=== PATIENT | female | born 1960 | race Caucasian/White ===

== ENCOUNTER 2021-02-22 09:50 | Inpatient (IN) ==
[2021-02-22] MEDS ORDERED: SODIUM CHLORIDE 0.9% 1000ML 1,000 ML IV SCH (10:30)
[2021-02-22 10:45] LABS: Basophils # (auto) 0.04 K/uL (0-0.2); Basophils % (auto) 0.3 %; Eosinophils % (auto) 0.6 %; Hematocrit (blood only) 40.3 % (37-47); Hemoglobin 13.9 g/dL (12.0-16.0); Immature Granulocytes # (auto) 0.09 K/uL (0.00-0.02); Immature Granulocytes % (auto) 0.6 %; Lymphocytes # (auto) 1.42 K/uL (1.2-3.4); Mean Corpuscular Hemoglobin 30.2 pg (25-34); Mean Corpuscular Hgb Conc 34.5 g/dL (32-36); Mean Corpuscular Volume 87.6 fL (80-100); Mean Platelet Volume 11.5 fL (7.4-10.4); Monocytes # (auto) 1.96 K/uL (0.11-0.59); Monocytes % (auto) 12.4 %; Neutrophils # (auto) 12.18 K/uL (1.4-6.5); Neutrophils % (auto) 77.1 %; Platelet Count 411 K/uL (130-400); RDW Coefficient of Variation 13.9 % (11.5-14.5); RDW Standard Deviation 44.8 fL (36.4-46.3); White Blood Count 15.79 K/uL (4.8-10.8)
[2021-02-22] MEDS ORDERED: ONDANSETRON INJ 2 MG/ML 2 ML VIAL IV STA (10:57)
[2021-02-22] MEDS ORDERED: FAMOTIDINE 20MG IV PUSH 20 MG/5 ML SYR IV STA (10:57)
[2021-02-22] MEDS ORDERED: fentaNYL citrate 100 MCG/2 ML VIAL IV STA (10:57)
[2021-02-22 11:02] LABS: Albumin Globulin Ratio 0.6 (0.9-2); Albumin Level 3.2 gm/dl (3.4-5.0); BUN Creatinine Ratio 22.2 (10-20); Bilirubin,Total 0.3 mg/dl (0.2-1); Calcium 10.8 mg/dl (8.5-10.1); Creatinine Clr Calc Pharmacy 62.5 ml/min; Est GFR (African American) 103.5; Est GFR (Non-African American) 89.3; Globulin 5.1 gm/dl (2.5-4.0); Potassium 3.7 mmol/L (3.5-5.1); Total Protein 8.4 gm/dl (6.4-8.2)
--- NOTE | 2021-02-22 11:06 | Emergency Department Note ---
History of Present Illness General Chief complaint: Vomiting Stated complaint: STOMACH ISSUE,DEHYDRATION,VOMITING,FEVER,HEADACHE Time Seen by Provider: 02/22/21 10:32 History of Present Illness Maximum Pain Intensity: 7 Patient is a 60-year-old female with past medical history significant for migraines, hypothyroidism, generalized osteoarthritis and seasonal allergies who presents the emergency department for evaluation of upper abdominal pain x5 days. She states that she developed epigastric abdominal pain on Thursday evening 5 days ago. She describes it as a constant, throbbing pressure. It mainly sits in the epigastric region, but on occasion can radiate to the right upper and the left upper quadrants. She went to her primary care provider on Thursday after the pain started, was seen by the DELIO, who recommended supportive care. At that time, the patient was noted to have a fever in the office greater than 101 F. Patient herself did take it upon herself to get a Covid test on Thursday which was negative. That day she had an episode of shaking chills, and started vomit ing. She is continued to run fevers between 99-102 degrees Fahrenheit. Pain has persisted. She was given Zofran yesterday, which did help with the vomiting. She has tried water, arpan danielle and oyster crackers. The pain is keeping her from sleeping, she currently rates her discomfort a 7/10. She has been taking combination Tylenol/ibuprofen for her pain, but this has been upsetting her stomach. She denies any hematemesis. Bowel movements prior to the onset of her pain have been normal, she reports no bowel movement due to the decreased oral intake. Certainly no melena or hematochezia. She has never had a colonoscopy or an EGD. Denies tobacco or nicotine use, drinks wine rarely, consumes 1/2 cups of coffee per day, but does note taking roughly 1600 mg of ibuprofen daily due to musculoskeletal pain. She is also using Claritin-D for her seasonal allergies. She was seen at the primary care provider's office again today, and referred to the emergency department for evaluation. Home Medications Medication Instructions Recorded Confirmed Type ibuprofen-acetaminophen [Advil 1 tab PO Q8H PRN 02/22/21 02/22/21 History Dual Action] levothyroxine 88 mcg PO QAM 02/22/21 02/22/21 History ondansetron HCl 4 mg PO TID PRN 02/22/21 02/22/21 History sumatriptan succinate 100 mg PO UD 02/22/21 02/22/21 History Allergies Allergy/AdvReac Type Severity Reaction Status Date / Time aspirin AdvReac Intermediate Severe GI Unverified 02/22/21 13:18 upset Past Med/Surg History Medical History Environmental and seasonal allergies Hx of migraines Hypothyroidism Surgical History No history of previous surgery Social History Smoking Status: Never smoker Preferred Language: Mauritian marital status: Single Current Living Situation: Significant Other current occupational status: employed Feels Safe at Home: Yes Review of Systems A total of 10 systems reviewed and were otherwise negative Physical Exam Vital Signs Vital Signs - 24 hr 02/22/21 09:55 02/22/21 11:50 02/22/21 14:00 Temperature 37.1 C Temperature Source Oral Pulse Rate 89 Pulse Rate [Left Finger] 67 75 Pulse Rhythm [Left Finger] Regular Regular Pulse Strength [Left Finger] Normal Normal Respiratory Rate 16 20 20 Respiratory Effort / Characteristics Non-Labored Spontaneous Non-Labored Spontaneous Respiratory Depth Normal Normal Respiratory Pattern Regular Regular Blood Pressure 125/87 Blood Pressure [Right Arm] 131/78 136/86 Blood Pressure Mean 99 Blood Pressure Mean [Right Arm] 95 102 Blood Pressure Position [Right Arm] Lying Sitting Pulse Oximetry 97 98 98 Oxygen Delivery Method Room Air Room Air Sepsis Recent Fever Within 48 Hours No Sepsis New/Unexplained Change in Mental Status N/A Sepsis Action Taken by Nursing No Action Required 02/22/21 16:18 Temperature Temperature Source Pulse Rate Pulse Rate [Left Finger] 97 H Pulse Rhythm [Left Finger] Regular Pulse Strength [Left Finger] Normal Respiratory Rate 20 Respiratory Effort / Characteristics Non-Labored Spontaneous Respiratory Depth Normal Respiratory Pattern Regular Blood Pressure Blood Pressure [Right Arm] 123/86 Blood Pressure Mean Blood Pressure Mean [Right Arm] 98 Blood Pressure Position [Right Arm] Sitting Pulse Oximetry 95 Oxygen Delivery Method Room Air Sepsis Recent Fever Within 48 Hours Sepsis New/Unexplained Change in Mental Status Sepsis Action Taken by Nursing CONSTITUTIONAL: Patient is an uncomfortable although nontoxic appearing 60-year-old female who is awake and alert and in no acute distress. Vital signs are stable. She is afebrile. EYES: Pupils equal, round, reactive to light and accommodation. EOMs intact without nystagmus. Sclera are anicteric. ENT: Tympanic membranes intact, with normal landmarks. External canals are clear. Oral and nasopharynx are clear. Mucous membranes are moist, no lesions, tongue and gums appear normal. CARDIOVASCULAR: Regular rate and rhythm, with normal S1 and S2, no murmur or gallop or rub is heard. Peripheral pulses easy to palpable. RESPIRATORY: Breath sounds equal and clear to auscultation without wheezes, rales, or rhonchi heard. Full and equal chest expansion without accessory muscle use or retractions. GI: Bowel sounds are present. Abdomen is soft, nondistended, nontender to percussion throughout. She is tender to palpation in the epigastric region on the right upper quadrant with voluntary guarding. No pain in the left or the right lower quadrants. No pain over McBurney's point. No organomegaly. No pulsatile masses. MUSCULOSKELETAL: Full range of motion of extremities x 4 with good strength. No cyanosis, edema, joint tenderness or swelling. No deformity. INTEGUMENTARY: No lesions or rash, normal skin turgor. NEUROLOGICAL: Alert, oriented, and cooperative. Cranial nerves, sensation and strength grossly intact. Pupils round, equal, and react to light, EOMs are full. LYMPH: No lymphadenopathy. Course Course The patient was seen and assessed as above. Old records were reviewed. She presents the emergency department from her primary care provider's office for evaluation of epigastric pain with associated nausea and vomiting over the last 5 days. IV lock was initiated and laboratory studies were collected. CBC with differential, CMP and lipase have been ordered per critical pathways. After my assessment of the patient, troponin and urinalysis were ordered. Chest x-ray and gallbladder ultrasound as well as an EKG were also obtained. She was hydrated with normal saline solution and medicated with Pepcid 20 mg IV, Zofran 4 mg IV and fentanyl 50 mcg IV. Laboratory studies noted a white count elevated at 15,800, left shift and bandemia noted. No anemia. Electrolytes sodium 135, potassium 3.7, chloride 100, carbon dioxide 26, BUN 16 and creatinine 0.74. AL T and a STIR normal, alk phos slightly elevated at 130. Troponin is negative x1 with symptoms greater than 24 hours. Lipase is not indicative of acute pancreatitis. EKG was as noted below with a no acute ischemic changes. Chest x-ray was clear. Gallbladder ultrasound was normal, without ductal dilatation. The patient was reassessed. Laboratory studies, EKG, chest x-ray and gallbladder ultrasound were reviewed with her. Discussed with her that CT scan of the abdomen pelvis with IV contrast was advised to further evaluate for the source of her abdominal pain. The patient's pain had improved from a 7/10 to a 2/10 with the IV medications. CT scan findings were consistent with gastric antral and duodenal wall thickening suspicious for gastritis/duodenitis, consistent with her symptoms, however additional findings noted a complex cystic 25 mm left renal lesion with surrounding hyperechoic parenchyma. There is mild enhancement of the renal pe lvis and proximal ureter. Findings are suspicious for renal abscess with pyelitis. Urologic consultation was recommended. There was no evidence for bowel obstruction, free air, acute diverticulitis or appendicitis. 2 mm nonobstructing left renal calculus noted. No ureteral calculi. 44 mm cystic right adnexal lesion statistically ovarian. All laboratory and diagnostic imaging studies were reviewed with attending physician. At this point the the patient's urinalysis was back, noting nitrat es, 10-30 WBCs and 2+ bacteria, greater than 30 epithelial cells are noted. Urine culture is pending. Given the findings on CT scan, I did order blood cultures x2 and a lactic acid. She was given ceftriaxone 2 g IV. Maintenance fluids at 250 cc an hour were initiated. She was given pantoprazole 40 mg orally. COVID-19 swab was obtained suspecting admission. Consultation was placed with urology, I spoke with ABAD Brady, who was in discussion with Dr. Olmstead. Ultimately, given the size of the suspected abscess on CT, it was felt that she would be better served at a tertiary care facility where interventional radiology services were available. Covid swab is negative. Lactate was normal at 0.7. Transfer was discussed with the patient and her significant other. She has elected [facility] in [place]. Transfer was initiated. I was able to speak with Dr. Lord, hospitalist service, discussed the case with him, and they have accepted the patient in transfer. Consent to transfer was obtained from the patient, transfer orders were complete, and transfer is pending, awaiting bed assignment from [facility]. Patient remained stable in the ED, pending transfer arrangements. At 1727, patient's primary nurse contacted me that patient had developed red, r aised patches on her face. She was reassessed by myself. She did appear to have hives on her cheeks, chin, neck and left clavicle region. No involvement of the lips, tongue or throat. No difficulty breathing or swallowing. She was given Benadryl 25 mg IV. I suspect the ceftriaxone as the likely cause. She has been loaded with 2g, and will not need any additional antibiotics for 24 hours. Further antibiotics will be determined by the admitting service at [place]. Administered Medications Sodium Chloride (Nss 1000ml) 1,000 mls @ 250 mls/hr IV .Q4H NORBERT Stop: 03/24/21 13:29 Last Admin: 02/22/21 14:09 Dose: 250 mls/hr Documented by: [id number] Discontinued Medications Fentanyl Citrate (Fentanyl Citrate 100 Mcg/2 Ml Vial) 50 mcg IV NOW STA Stop: 02/22/21 10:58 Last Admin: 02/22/21 12:53 Dose: 50 mcg Documented by: [id number] Sodium Chloride (Nss 1000ml) 1,000 mls @ 999 mls/hr IV .Q1H1M NORBERT Stop: 02/22/21 11:30 Last Infusion: 02/22/21 11:34 Dose: 0 mls/hr Documented by: [id number] Admin: 02/22/21 10:28 Dose: 999 mls/hr Documented by: [id number] Famotidine (Pepcid 20mg Iv Push) 20 mg in 5 mls @ 2.5 mls/min IV NOW STA Stop: 02/22/21 10:58 Last Admin: 02/22/21 12:01 Dose: 2.5 mls/min Documented by: [id number] Ceftriaxone Sodium (Rocephin) 2,000 mg in 70 mls @ 140 mls/hr IV NOW STA Stop: 02/22/21 13:58 Last Admin: 02/22/21 14:51 Dose: 140 mls/hr Documented by: [id number] Ioversol (Optiray 300 100ml) 88 ml IV ONCE ONE Stop: 02/22/21 12:25 Last Admin: 02/22/21 12:24 Dose: 88 ml Documented by: [id number] Ondansetron HCl (Ondansetron Inj 2 Mg/Ml 2 Ml Vial) 4 mg IV NOW STA Stop: 02/22/21 10:58 Last Admin: 02/22/21 12:01 Dose: 4 mg Documented by: [id number] Pantoprazole Sodium (Pantoprazole 40 Mg Tab) 40 mg PO NOW STA Stop: 02/22/21 13:32 Last Admin: 02/22/21 14:09 Dose: 40 mg Documented by: [id number] Medical Decision Making Differential Diagnosis Differential diagnoses entertained included GERD, gastritis, esophagitis, peptic ulcer disease, acute pancreatitis, biliary colic, acute cholecystitis, symptomatic cholelithiasis, ascending cholangitis, bowel obstruction, perforation, mass or malignancy, UTI, pyelonephritis, kidney stone, among others. Medical Records Attestation: I reviewed the patient's medical records. Home Medications Current Medication List: was personally reviewed by me Laboratory Data Attestation: I reviewed the patient's lab results. Result diagrams: 02/22/21 10:15 02/22/21 10:12 Lab Results 02/22/21 02/22/21 02/22/21 Range/Units 10:12 10:15 10:59 WBC 15.79 H (4.8-10.8) K/uL RBC 4.60 (4.2-5.4) M/uL Hgb 13.9 (12.0-16.0) g/dL Hct 40.3 (37-47) % MCV 87.6 (80-100) fL MCH 30.2 (25-34) pg MCHC 34.5 (32-36) g/dL RDW Std Deviation 44.8 (36.4-46.3) fL RDW Coeff of Lilliam 13.9 (11.5-14.5) % Plt Count 411 H (130-400) K/uL MPV 11.5 H (7.4-10.4) fL Immature Gran % (Auto) 0.6 % Neut % (Auto) 77.1 % Lymph % (Auto) 9.0 % [place] % (Auto) 12.4 % Eos % (Auto) 0.6 % Baso % (Auto) 0.3 % Neut # (Auto) 12.18 H (1.4-6.5) K/uL Lymph # (Auto) 1.42 (1.2-3.4) K/uL [place] # (Auto) 1.96 H (0.11-0.59) K/uL Eos # (Auto) 0.10 (0-0.5) K/uL Baso # (Auto) 0.04 (0-0.2) K/uL Immature Gran # (Auto) 0.09 H (0.00-0.02) K/uL Sodium 135 L (136-145) mmol/L Potassium 3.7 (3.5-5.1) mmol/L Chloride 100 (98-107) mmol/L Carbon Dioxide 26 (21-32) mmol/L Anion Gap 9.0 (3-11) BUN 16 (7-18) mg/dl Creatinine 0.74 (0.6-1.2) mg/dl Est Cr Clr Drug Dosing 62.5 ml/min Est GFR ( Amer) 103.5 Est GFR (Non-Af Amer) 89.3 BUN/Creatinine Ratio 22.2 H (10-20) Glucose 110 H (70-99) mg/dl Lactate (0.4-2.0) mmol/L Calcium 10.8 H (8.5-10.1) mg/dl Total Bilirubin 0.3 (0.2-1) mg/dl AST 18 (15-37) U/L ALT 47 (12-78) U/L Alkaline Phosphatase 130 H (45-117) U/L Troponin I < 0.015 (0-0.045) ng/ml Total Protein 8.4 H (6.4-8.2) gm/dl Albumin 3.2 L (3.4-5.0) gm/dl Globulin 5.1 H (2.5-4.0) gm/dl Albumin/Globulin Ratio 0.6 L (0.9-2) Lipase 62 L (73-393) U/L Specimen Hemolysis Urine Color Urine Appearance (Clear) Urine pH (4.5-7.5) Ur Specific [place] (1.000-1.030) Urine Protein (Negative) Urine Glucose (UA) (Negative) Urine Ketones (Negative) Urine Blood (Negative) Urine Nitrite (Negative) Urine Bilirubin (Negative) Urine Urobilinogen (Negative) Ur Leukocyte Esterase (Negative) Urine WBC (Auto) (0-5) /hpf Urine RBC (Auto) (0-4) /hpf U Hyaline Cast (Auto) (0-5) /lpf U Epithel Cells (Auto) (0-5) /lpf Urine Bacteria (Auto) (Negative) COVID-19 Eval Order SARS-CoV-2 (PCR) (Negative) Influenza Type A (PCR) (Neg) Influenza Type B (PCR) (Neg) RSV (RT-PCR) (Neg) 02/22/21 02/22/21 02/22/21 Range/Units 12:58 14:13 14:13 WBC (4.8-10.8) K/uL RBC (4.2-5.4) M/uL Hgb (12.0-16.0) g/dL Hct (37-47) % MCV (80-100) fL MCH (25-34) pg MCHC (32-36) g/dL RDW Std Deviation (36.4-46.3) fL RDW Coeff of Lilliam (11.5-14.5) % Plt Count (130-400) K/uL MPV (7.4-10.4) fL Immature Gran % (Auto) % Neut % (Auto) % Lymph % (Auto) % [place] % (Auto) % Eos % (Auto) % Baso % (Auto) % Neut # (Auto) (1.4-6.5) K/uL Lymph # (Auto) (1.2-3.4) K/uL [place] # (Auto) (0.11-0.59) K/uL Eos # (Auto) (0-0.5) K/uL Baso # (Auto) (0-0.2) K/uL Immature Gran # (Auto) (0.00-0.02) K/uL Sodium (136-145) mmol/L Potassium (3.5-5.1) mmol/L Chloride (98-107) mmol/L Carbon Dioxide (21-32) mmol/L Anion Gap (3-11) BUN (7-18) mg/dl Creatinine (0.6-1.2) mg/dl Est Cr Clr Drug Dosing ml/min Est GFR ( Amer) Est GFR (Non-Af Amer) BUN/Creatinine Ratio (10-20) Glucose (70-99) mg/dl Lactate (0.4-2.0) mmol/L Calcium (8.5-10.1) mg/dl Total Bilirubin (0.2-1) mg/dl AST (15-37) U/L ALT (12-78) U/L Alkaline Phosphatase (45-117) U/L Troponin I (0-0.045) ng/ml Total Protein (6.4-8.2) gm/dl Albumin (3.4-5.0) gm/dl Globulin (2.5-4.0) gm/dl Albumin/Globulin Ratio (0.9-2) Lipase (73-393) U/L Specimen Hemolysis Urine Color Yellow Urine Appearance Clear (Clear) Urine pH 7.5 (4.5-7.5) Ur Specific [place] > 1.045 H (1.000-1.030) Urine Protein Trace H (Negative) Urine Glucose (UA) Negative (Negative) Urine Ketones Trace H (Negative) Urine Blood Trace H (Negative) Urine Nitrite Positive A (Negative) Urine Bilirubin Negative (Negative) Urine Urobilinogen Negative (Negative) Ur Leukocyte Esterase Negative (Negative) Urine WBC (Auto) 10-30 H (0-5) /hpf Urine RBC (Auto) 0-4 (0-4) /hpf U Hyaline Cast (Auto) 1-5 (0-5) /lpf U Epithel Cells (Auto) >30 H (0-5) /lpf Urine Bacteria (Auto) 2+ H (Negative) COVID-19 Eval Order CovFluRsv at [facility] SARS-CoV-2 (PCR) NEGATIVE (Negative) Influenza Type A (PCR) Negative (Neg) Influenza Type B (PCR) Negative (Neg) RSV (RT-PCR) Negative (Neg) 02/22/21 Range/Units 14:40 WBC (4.8-10.8) K/uL RBC (4.2-5.4) M/uL Hgb (12.0-16.0) g/dL Hct (37-47) % MCV (80-100) fL MCH (25-34) pg MCHC (32-36) g/dL RDW Std Deviation (36.4-46.3) fL RDW Coeff of Lilliam (11.5-14.5) % Plt Count (130-400) K/uL MPV (7.4-10.4) fL Immature Gran % (Auto) % Neut % (Auto) % Lymph % (Auto) % [place] % (Auto) % Eos % (Auto) % Baso % (Auto) % Neut # (Auto) (1.4-6.5) K/uL Lymph # (Auto) (1.2-3.4) K/uL [place] # (Auto) (0.11-0.59) K/uL Eos # (Auto) (0-0.5) K/uL Baso # (Auto) (0-0.2) K/uL Immature Gran # (Auto) (0.00-0.02) K/uL Sodium (136-145) mmol/L Potassium (3.5-5.1) mmol/L Chloride (98-107) mmol/L Carbon Dioxide (21-32) mmol/L Anion Gap (3-11) BUN (7-18) mg/dl Creatinine (0.6-1.2) mg/dl Est Cr Clr Drug Dosing ml/min Est GFR ( Amer) Est GFR (Non-Af Amer) BUN/Creatinine Ratio (10-20) Glucose (70-99) mg/dl Lactate 0.7 (0.4-2.0) mmol/L Calcium (8.5-10.1) mg/dl Total Bilirubin (0.2-1) mg/dl AST (15-37) U/L ALT (12-78) U/L Alkaline Phosphatase (45-117) U/L Troponin I (0-0.045) ng/ml Total Protein (6.4-8.2) gm/dl Albumin (3.4-5.0) gm/dl Globulin (2.5-4.0) gm/dl Albumin/Globulin Ratio (0.9-2) Lipase (73-393) U/L Specimen Hemolysis Urine Color Urine Appearance (Clear) Urine pH (4.5-7.5) Ur Specific [place] (1.000-1.030) Urine Protein (Negative) Urine Glucose (UA) (Negative) Urine Ketones (Negative) Urine Blood (Negative) Urine Nitrite (Negative) Urine Bilirubin (Negative) Urine Urobilinogen (Negative) Ur Leukocyte Esterase (Negative) Urine WBC (Auto) (0-5) /hpf Urine RBC (Auto) (0-4) /hpf U Hyaline Cast (Auto) (0-5) /lpf U Epithel Cells (Auto) (0-5) /lpf Urine Bacteria (Auto) (Negative) COVID-19 Eval Order SARS-CoV-2 (PCR) (Negative) Influenza Type A (PCR) (Neg) Influenza Type B (PCR) (Neg) RSV (RT-PCR) (Neg) Imaging Data Attestation: I personally reviewed and interpreted this imaging study as follows: Radiologist's Impression: Chest X-Ray 02/22/21 10:57 XR chest 1V portable CLINICAL HISTORY: EPIGASTRIC PAIN X 5 DAYS COMPARISON STUDY: No previous studies for comparison. FINDINGS: Lung volumes are normal. Lungs are clear. There is no pneumothorax or pleural effusion. Cardiac size is normal. Mediastinal contours are normal. There is no evidence for pulmonary edema. IMPRESSION: No acute cardiopulmonary findings. ACT 112: Negative or not required by law. Electronically signed by: Amadou Souza M.D. 02/22/2021 11:23 AM Gallbladder Ultrasound 02/22/21 10:58 BILIARY ULTRASOUND CLINICAL HISTORY: EPIGASTRIC PAIN X 5 DAYS COMPARISON STUDY: No previous studies for comparison. FINDINGS: The gallbladder appears sonographically normal. The liver appears sonographically normal. Pancreas appears sonographically normal. There is no ductal dilatation. The common bile duct measures 4 mm. There is no right-sided hydronephrosis. IMPRESSION: Normal biliary ultrasound. ACT 112: Negative or not required by law. Electronically signed by: Reza Knox M.D. 02/22/2021 11:56 AM Abdomen/Pelvis CT 02/22/21 12:05 CT abd pelvis IV con only CLINICAL HISTORY: EPIGASTRIC PAIN, N/V, FEVER COMPARISON STUDY: Gallbladder ultrasound performed the same day. TECHNIQUE: Patient was scanned in a dynamic helical fashion during intravenous administration of 88 cc of Optiray 320 A dose lowering technique was utilized adhering to the principles of ALARA. CT DOSE: 246.87 mGy.cm FINDINGS: Lower chest: There are mild basilar atelectatic changes. Liver: There are subcentimeter hepatic hypodensities, likely representing cysts. Gallbladder: No calculi identified. Spleen: Normal in size and attenuation. Pancreas: Unremarkable. Adrenal glands: Unremarkable. Kidneys: There is a 25 mm left renal hypodense lesion which exceeds water attenuation. There is subtle low density within the surrounding renal parenchyma. There is mild enhancement of the left renal pelvis and proximal ureter. Clinical correlation and follow-up is recommended.. The findings favor a renal abscess and pyelitis. A cystic renal lesion of some other etiology can of course not be excluded. There is a second 11 mm left renal hypodense lesion which also exceeds water attenuation and is therefore indeterminate. This lesion should be reevaluated on subsequent renal imaging. There is a 2 mm nonobstructing lower pole left renal calculus. Bowel: There are no transition zones to indicate bowel obstruction. There is no evidence of acute diverticulitis. There is no evidence of acute appendicitis. There is bowel wall thickening involving the gastric antrum and duodenum suspicious for a gastritis/duodenitis. Clinical correlation advocated Peritoneum: There is no intraperitoneal free air or abdominal ascites. Vasculature: The abdominal aorta is normal in course and caliber. Adenopathy: None. Pelvic viscera: There is a 44 mm cystic right adnexal lesion, statistically ovarian. There are calcifications within the uterus likely secondary to calcified fibroids Skeletal structures: No destructive osseous lesions are seen. IMPRESSION: 1. No evidence of bowel obstruction. No evidence of free air 2. No evidence of acute diverticulitis. No evidence of acute appendicitis. 3. Gastric antral and duodenal wall thickening, suspicious for a gastritis/duodenitis. 4. Complex cystic 25 mm left renal lesion with surrounding hypoechoic parenchyma. There is mild enhancement of the renal pelvis and proximal ureter. T he findings are suspicious for a renal abscess with a pyelitis. Urological consultation recommended in follow-up.. 5. Additional indeterminate 11 mm left renal lesion. 6. 2 mm nonobstructing left renal calculus. No ureteral calculi identified. 6. 44 mm cystic right adnexal lesion statistically ovarian ACT 112: Positive. There are findings on this exam that require communication between the performing entity and the patient following Patient Test Result Information Act ([place] Act 112) guidelines. Electronically signed by: Reza Knox M.D. 02/22/2021 12:54 PM ECG Data Attestation: I personally reviewed and interpreted this ECG as follows: Indication: + abdominal pain Rate (beats per minute): 79 Rhythm: + normal sinus ECG [place]: + Normal ECG ST segments: no ST elevation Comparison ECG Date: no prior available MDM Narrative See ED Course. Impression & Plan Abscess of left kidney, Acute pyelitis, Gastritis and duodenitis Discharge Plan Visit Data Chief Complaint: Vomiting Stated Complaint: STOMACH ISSUE,DEHYDRATION,VOMITING,FEVER,HEADACHE ED Provider: Gabriel Almanza ED Midlevel Provider: Sue Bach Discharge Problem: Abscess of left kidney, Acute pyelitis, Gastritis and duodenitis Patient Disposition: Transfer Acute Care Hospital Forms Stand Alone Forms: [facility] Prescriptions Prescriptions: No Action sumatriptan succinate 100 mg tablet 100 mg PO UD RF: 0 ondansetron HCl 4 mg tablet 4 mg PO TID PRN (Reason: Nausea) RF: 0 levothyroxine 88 mcg tablet 88 mcg PO QAM RF: 0 Advil Dual Action 125-250 mg Tablet 1 tab PO Q8H PRN (Reason: Pain) RF: 0 Referrals Referrals: Sarita Jordan DO [Primary Care Provider] -
--- NOTE | 2021-02-22 11:24 | XRay Report ---
XR chest 1V portable CLINICAL HISTORY: EPIGASTRIC PAIN X 5 DAYS COMPARISON STUDY: No previous studies for comparison. FINDINGS: Lung volumes are normal. Lungs are clear. There is no pneumothorax or pleural effusion. Car diac size is normal. Mediastinal contours are normal. There is no evidence for pulmonary edema. IMPRESSION: No acute cardiopulmonary findings. ACT 112: Negative or not required by law. Electronically signed by: Amadou Souza M.D. 02/22/2021 11:23 AM
[2021-02-22 11:42] LABS: Troponin I < 0.015 ng/ml (0-0.045)
--- NOTE | 2021-02-22 11:58 | Ultrasound Report ---
BILIARY ULTRASOUND CLINICAL HISTORY: EPIGASTRIC PAIN X 5 DAYS COMPARISON STUDY: No previous studies for comparison. FINDINGS: The gallbladder appears sonographically normal. The liver appears sonographically normal. P ancreas appears sonographically normal. There is no ductal dilatation. The common bile duct measures 4 mm. There is no right-sided hydronephrosis. IMPRESSION: Normal biliary ultrasound. ACT 112: Negative or not required by law. Electronically signed by: Reza Knox M.D. 02/22/2021 11:56 AM
[2021-02-22] MEDS ORDERED: OPTIRAY 300 100mL IV ONE (12:24)
--- NOTE | 2021-02-22 12:55 | CT Scan Report ---
CT abd pelvis IV con only CLINICAL HISTORY: EPIGASTRIC PAIN, N/V, FEVER COMPARISON STUDY: Gallbladder ultrasound performed the same day. TECHNIQUE: Patient was scanned in a dynamic helical fashion during intravenous administration of 88 c c of Optiray 320 A dose lowering technique was utilized adhering to the principles of ALARA. CT DOSE: 246.87 mGy.cm FINDINGS: Lower chest: There are mild basilar atelectatic changes. Liver: There are subcentimeter hepatic hypodensities, likely representing cysts. Gallbladder: No calculi identified. Spleen: Normal in size and attenuation. Pancreas: Unremarkable. Adrenal glands: Unremarkable. Kidneys: There is a 25 mm left renal hypodense lesion which exceeds water attenuation. There is subtl e low density within the surrounding renal parenchyma. There is mild enhancement of the left renal pe lvis and proximal ureter. Clinical correlation and follow-up is recommended.. The findings favor a re nal abscess and pyelitis. A cystic renal lesion of some other etiology can of course not be excluded. There is a second 11 mm left renal hypodense lesion which also exceeds water attenuation and is ther efore indeterminate. This lesion should be reevaluated on subsequent renal imaging. There is a 2 mm n onobstructing lower pole left renal calculus. Bowel: There are no transition zones to indicate bowel obstruction. There is no evidence of acute div erticulitis. There is no evidence of acute appendicitis. There is bowel wall thickening involving the gastric antrum and duodenum suspicious for a gastritis/duodenitis. Clinical correlation advocated Peritoneum: There is no intraperitoneal free air or abdominal ascites. Vasculature: The abdominal aorta is normal in course and caliber. Adenopathy: None. Pelvic viscera: There is a 44 mm cystic right adnexal lesion, statistically ovarian. There are calcif ications within the uterus likely secondary to calcified fibroids Skeletal structures: No destructive osseous lesions are seen. IMPRESSION: 1. No evidence of bowel obstruction. No evidence of free air 2. No evidence of acute diverticulitis. No evidence of acute appendicitis. 3. Gastric antral and duodenal wall thickening, suspicious for a gastritis/duodenitis. 4. Complex cystic 25 mm left renal lesion with surrounding hypoechoic parenchyma. There is mild enhan cement of the renal pelvis and proximal ureter. The findings are suspicious for a renal abscess with a pyelitis. Urological consultation recommended in follow-up.. 5. Additional indeterminate 11 mm left renal lesion. 6. 2 mm nonobstructing left renal calculus. No ureteral calculi identified. 6. 44 mm cystic right adnexal lesion statistically ovarian ACT 112: Positive. There are findings on this exam that require communication between the performing entity and the patient following Patient Test Result Information Act ([place] Act 112) guidelines. Electronically signed by: Reza Knox M.D. 02/22/2021 12:54 PM
[2021-02-22 13:14] LABS: Appearance Urine Clear (Clear); Bilirubin Urine Negative (Negative); Blood Urine Trace (Negative); Color Urine Yellow; Epithelial Cell Urine Auto >30 /lpf (0-5); Glucose Urine UA Negative (Negative); Ketones Urine Trace (Negative); Leukocyte Esterase Urine Negative (Negative); Nitrite Urine Positive (Negative); RBC Urine Automated 0-4 /hpf (0-4); Specific Gravity Urine > 1.045 (1.000-1.030); Urobilinogen Urine Negative (Negative); pH Urine 7.5 (4.5-7.5)
[2021-02-22 13:27] LABS: Protein Urine Trace (Negative)
[2021-02-22] MEDS ORDERED: cefTRIAXone SODIUM 2,000 MG/70 ML BAG IV STA (13:29)
[2021-02-22] MEDS ORDERED: PANTOprazole 40 MG TAB PO STA (13:31)
[2021-02-22 13:41] LABS: Bacteria Urine Automated 2+ (Negative)
[2021-02-22] MEDS: SODIUM CHLORIDE 0.9% 1000ML 1,000 ML IV SCH ×2 (14:09→20:49)
[2021-02-22 15:12] LABS: Influenza A virus by PCR Negative (Neg); Influenza B virus by PCR Negative (Neg); RSV by PCR Negative (Neg); SARS CoV2 RNA(COVID-19) InHosp NEGATIVE (Negative)
--- NOTE | 2021-02-22 15:35 | Electrocardiogram Report ---
Test Reason : Blood Pressure : / mmHG Vent. Rate : 079 BPM Atrial Rate : 079 BPM P-R Int : 144 ms QRS Dur : 086 ms QT Int : 368 ms P-R-T Axes : 072 061 066 degrees QTc Int : 421 ms Normal sinus rhythm Normal ECG No previous ECGs available Confirmed by John Baca ([id number]) on 02/22/2021 3:35:08 PM Referred By: REFERRED SELF Confirmed By:John Baca
[2021-02-22] MEDS ORDERED: ONDANSETRON INJ 2 MG/ML 2 ML VIAL IV PRN (17:22)
[2021-02-22] MEDS ORDERED: fentaNYL citrate 100 MCG/2 ML VIAL IV PRN (17:22)
[2021-02-22] MEDS ORDERED: diphenhydrAMINE 50 MG/ML VIAL IV STA (17:39)
[2021-02-22] MEDS ORDERED: PIPERACILL/TAZOBAC CONSULT ACTIVE PRN (21:22)
[2021-02-22] MEDS ORDERED: PIPERACILLIN/TAZOBACTAM 4.5 GM/120 ML BAG IV STA (21:32)
--- NOTE | 2021-02-22 22:23 | Emergency Department Note ---
ED Visit Note Care of this patient was signed out to me by Alee Bach PA-C at change of shift. At that time, patient was awaiting transfer to [facility]. Unfortunately, there was no bed available at [facility] and they were not sure when the next bed would be available, but did not think it would be until tomorrow. Given this, I think it would benefit the patient to admit her here for IV antibiotics until she is able to be transferred. I discussed this with the patient and her , who were in agreement. The case was discussed with the [facility] hospitalist, Dr. Salmon, who agreed to evaluate the patient for admission here.
[2021-02-22 22:48] LABS: Magnesium 2.4 mg/dl (1.8-2.4)
--- NOTE | 2021-02-22 23:51 | History & Physical Report ---
Date of Service February 22, 2021 Assessment & Plan (1) Abscess of left kidney: Complicated UTI Possible sepsis NSAID gastritis/duodenitis Hypothyroidism, TSH elevated Hyperglycemia rule out DM Past tobacco abuse Constipation [facility] Fariha RASMUSSEN Urology consult Re: Left renal abscess (Dr. Olmstead agreeable to patient request to stay at [facility] for antibiotic trial for now.) Daily PPI for gastritis/duodenitis. Patient counseled regarding adverse effects of NSAIDs on GI mucosa. GI consult if with worsening symptoms. Check hemoglobin A1c Bowel regimen DVT prophylaxis. SCDs RE GI bleed propensity from gastritis/duodenitis Full code Text document was generated using [employer] voice recognition software. It may contain grammatical or spelling errors. Kindly contact undersigned for clarification of any documentation item in question. History of Present Illness Chief Complaint: Abdominal pain Primary Care Provider: Sarita Jordan, History obtained from patient and records. Medical history significant for hypothyroidism, past tobacco abuse. 5 days history of achy/burning epigastric pain with nausea, emesis symptoms. Patient constipated. Fever, chills at home. Minimal L flank pain, dysuria symptoms. 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 No unusual weight loss as per patient. Patient seen at PCP's office a day after onset of symptoms. Symptoms attributed to gastroenteritis. Patient consulted ER today because of worsening symptoms. Epigastric discomfort relieved by Famotidine, Protonix, and Fentanyl. Patient given IV ceftriaxone for possible renal abscess on CT. Hives noted after IV Ceftriaxone administration. Resolved after IV Benadryl administration. Urologist cold reduction roller later recommended [facility] transfer for IR services for renal abscess. Patient accepted for transfer by hospitalist service (Dr. Lord) as per documentation. Patient currently refusing [facility] transfer even with bed availability. She requests to stay at [facility] for antibiotic trial for now. 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 [employer] Allergies Allergy/AdvReac Type Severity Reaction Status Date / Time ceftriaxone Allergy Mild Hives Verified 02/22/21 23:56 aspirin AdvReac Intermediate Severe GI Unverified 02/22/21 13:18 upset Home Medications Medication Instructions Recorded Confirmed Type ibuprofen-acetaminophen [Advil 1 tab PO Q8H PRN 02/22/21 02/22/21 History Dual Action] levothyroxine 88 mcg PO QAM 02/22/21 02/22/21 History ondansetron HCl 4 mg PO TID PRN 02/22/21 02/22/21 History sumatriptan succinate 100 mg PO UD 02/22/21 02/22/21 History Past Med/Surg History Medical History Environmental and seasonal allergies Hx of migraines Hypothyroidism Surgical History No history of previous surgery Social History Smoking Status: Former smoker Hx Alcohol Use: Yes Alcohol type: wine Hx Substance Use: No Preferred Language: [place] Medical Specialist Required: No Beliefs That Will Affect Care: None marital status: Single Current Living Situation: Alone current occupational status: employed Other Information That Helps Us Care for You: No Feels Safe at Home: Yes Assistive Devices: Glasses Review of Systems Review of Systems: As per HPI, all 10 systems reviewed, all other ROS negative Physical Exam Physical Exam: GENERAL: Slightly uncomfortable, pleasant, no respiratory distress SKIN: Normal color, warm HEENT: [place] palpebral conjunctivae, no ptosis, dry buccal mucosa NECK : Supple, no tenderness CHEST : CTA, no tenderness HEART : RRR, no obvious murmurs ABDOMEN: Some distention, epigastric tenderness EXTREMITIES : No LE swelling/tenderness, no other conspicuous deformities noted NEUROLOGIC : Coherent, no facial asymmetry, no other gross focality Results & Data Results & Data ([facility]) Vital Signs (Past 12 Hours) Vital Signs Pulse Resp BP Pulse Ox 02/22/21 21:42 88 17 134/88 99 02/22/21 20:47 78 18 130/86 98 02/22/21 19:02 85 18 132/90 98 02/22/21 17:55 74 20 124/84 97 02/22/21 16:18 97 H 20 123/86 95 02/22/21 14:00 75 20 136/86 98 Laboratory Results Laboratory Results WBC 15.79 K/uL (4.8-10.8) H 02/22/21 10:15 RBC 4.60 M/uL (4.2-5.4) 02/22/21 10:15 Hgb 13.9 g/dL (12.0-16.0) 02/22/21 10:15 Hct 40.3 % (37-47) 02/22/21 10:15 MCV 87.6 fL (80-100) 02/22/21 10:15 MCH 30.2 pg (25-34) 02/22/21 10:15 MCHC 34.5 g/dL (32-36) 02/22/21 10:15 RDW Std Deviation 44.8 fL (36.4-46.3) 02/22/21 10:15 RDW Coeff of [place]illi[place] 13.9 % (11.5-14.5) 02/22/21 10:15 Plt Count 411 K/uL (130-400) H 02/22/21 10:15 MPV 11.5 fL (7.4-10.4) H 02/22/21 10:15 Immature Gran % (Auto) 0.6 % 02/22/21 10:15 Neut % (Auto) 77.1 % 02/22/21 10:15 Lymph % (Auto) 9.0 % 02/22/21 10:15 [place] % (Auto) 12.4 % 02/22/21 10:15 Eos % (Auto) 0.6 % 02/22/21 10:15 Baso % (Auto) 0.3 % 02/22/21 10:15 Neut # (Auto) 12.18 K/uL (1.4-6.5) H 02/22/21 10:15 Lymph # (Auto) 1.42 K/uL (1.2-3.4) 02/22/21 10:15 [place] # (Auto) 1.96 K/uL (0.11-0.59) H 02/22/21 10:15 Eos # (Auto) 0.10 K/uL (0-0.5) 02/22/21 10:15 Baso # (Auto) 0.04 K/uL (0-0.2) 02/22/21 10:15 Immature Gran # (Auto) 0.09 K/uL (0.00-0.02) H 02/22/21 10:15 Sodium 135 mmol/L (136-145) L 02/22/21 10:12 Potassium 3.7 mmol/L (3.5-5.1) 02/22/21 10:12 Chloride 100 mmol/L (98-107) 02/22/21 10:12 Carbon Dioxide 26 mmol/L (21-32) 02/22/21 10:12 Anion Gap 9.0 (3-11) 02/22/21 10:12 BUN 16 mg/dl (7-18) 02/22/21 10:12 Creatinine 0.74 mg/dl (0.6-1.2) 02/22/21 10:12 Est Cr Clr Drug Dosing 62.5 ml/min 02/22/21 10:12 Est GFR ( Amer) 103.5 02/22/21 10:12 Est GFR (Non-Af Amer) 89.3 02/22/21 10:12 BUN/Creatinine Ratio 22.2 (10-20) H 02/22/21 10:12 Glucose 110 mg/dl (70-99) H 02/22/21 10:12 Lactate 0.7 mmol/L (0.4-2.0) 02/22/21 14:40 Calcium 10.8 mg/dl (8.5-10.1) H 02/22/21 10:12 Magnesium 2.4 mg/dl (1.8-2.4) 02/22/21 10:59 Total Bilirubin 0.3 mg/dl (0.2-1) 02/22/21 10:12 AST 18 U/L (15-37) 02/22/21 10:12 ALT 47 U/L (12-78) 02/22/21 10:12 Alkaline Phosphatase 130 U/L (45-117) H 02/22/21 10:12 Troponin I < 0.015 ng/ml (0-0.045) 02/22/21 10:59 Total Protein 8.4 gm/dl (6.4-8.2) H 02/22/21 10:12 Albumin 3.2 gm/dl (3.4-5.0) L 02/22/21 10:12 Globulin 5.1 gm/dl (2.5-4.0) H 02/22/21 10:12 Albumin/Globulin Ratio 0.6 (0.9-2) L 02/22/21 10:12 Lipase 62 U/L (73-393) L 02/22/21 10:12 Specimen Hemolysis 02/22/21 10:12 Urine Color Yellow 02/22/21 12:58 Urine Appearance Clear (Clear) 02/22/21 12:58 Urine pH 7.5 (4.5-7.5) 02/22/21 12:58 Ur Specific [place] > 1.045 (1.000-1.030) H 02/22/21 12:58 Urine Protein Trace (Negative) H 02/22/21 12:58 Urine Glucose (UA) Negative (Negative) 02/22/21 12:58 Urine Ketones Trace (Negative) H 02/22/21 12:58 Urine Blood Trace (Negative) H 02/22/21 12:58 Urine Nitrite Positive (Negative) A 02/22/21 12:58 Urine Bilirubin Negative (Negative) 02/22/21 12:58 Urine Urobilinogen Negative (Negative) 02/22/21 12:58 Ur Leukocyte Esterase Negative (Negative) 02/22/21 12:58 Urine WBC (Auto) 10-30 /hpf (0-5) H 02/22/21 12:58 Urine RBC (Auto) 0-4 /hpf (0-4) 02/22/21 12:58 U Hyaline Cast (Auto) 1-5 /lpf (0-5) 02/22/21 12:58 U Epithel Cells (Auto) >30 /lpf (0-5) H 02/22/21 12:58 Urine Bacteria (Auto) 2+ (Negative) H 02/22/21 12:58 COVID-19 Eval Order [facility]Rsv at [facility] 02/22/21 14:13 SARS-CoV-2 (PCR) NEGATIVE (Negative) 02/22/21 14:13 Influenza Type A (PCR) Negative (Neg) 02/22/21 14:13 Influenza Type B (PCR) Negative (Neg) 02/22/21 14:13 RSV (RT-PCR) Negative (Neg) 02/22/21 14:13 Impressions Chest X-Ray 02/22/21 10:57 XR chest 1V portable CLINICAL HISTORY: EPIGASTRIC PAIN X 5 DAYS COMPARISON STUDY: No previous studies for comparison. FINDINGS: Lung volumes are normal. Lungs are clear. There is no pneumothorax or pleural effusion. Cardiac size is normal. Mediastinal contours are normal. There is no evidence for pulmonary edema. IMPRESSION: No acute cardiopulmonary findings. ACT 112: Negative or not required by law. Electronically signed by: Amadou Souza M.D. 02/22/2021 11:23 AM Gallbladder Ultrasound 02/22/21 10:58 BILIARY ULTRASOUND CLINICAL HISTORY: EPIGASTRIC PAIN X 5 DAYS COMPARISON STUDY: No previous studies for comparison. FINDINGS: The gallbladder appears sonographically normal. The liver appears sonographically normal. Pancreas appears sonographically normal. There is no ductal dilatation. The common bile duct measures 4 mm. There is no right-sided hydronephrosis. IMPRESSION: Normal biliary ultrasound. ACT 112: Negative or not required by law. Electronically signed by: Reza Knox M.D. 02/22/2021 11:56 AM Abdomen/Pelvis CT 02/22/21 12:05 CT abd pelvis IV con only CLINICAL HISTORY: EPIGASTRIC PAIN, N/V, FEVER COMPARISON STUDY: Gallbladder ultrasound performed the same day. TECHNIQUE: Patient was scanned in a dynamic helical fashion during intravenous administration of 88 cc of Optiray 320 A dose lowering technique was utilized adhering to the principles of ALARA. CT DOSE: 246.87 mGy.cm FINDINGS: Lower chest: There are mild basilar atelectatic changes. Liver: There are subcentimeter hepatic hypodensities, likely representing cysts. Gallbladder: No calculi identified. Spleen: Normal in size and attenuation. Pancreas: Unremarkable. Adrenal glands: Unremarkable. Kidneys: There is a 25 mm left renal hypodense lesion which exceeds water attenuation. There is subtle low density within the surrounding renal parenchyma. There is mild enhancement of the left renal pelvis and proximal ureter. Clinical correlation and follow-up is recommended.. The findings favor a renal abscess and pyelitis. A cystic renal lesion of some other etiology can of course not be excluded. There is a second 11 mm left renal hypodense lesion which also exceeds water attenuation and is therefore indeterminate. This lesion should be reevaluated on subsequent renal imaging. There is a 2 mm nonobstructing lower pole left renal calculus. Bowel: There are no transition zones to indicate bowel obstruction. There is no evidence of acute diverticulitis. There is no evidence of acute appendicitis. There is bowel wall thickening involving the gastric antrum and duodenum suspicious for a gastritis/duodenitis. Clinical correlation advocated Peritoneum: There is no intraperitoneal free air or abdominal ascites. Vasculature: The abdominal aorta is normal in course and caliber. Adenopathy: None. Pelvic viscera: There is a 44 mm cystic right adnexal lesion, statistically ovarian. There are calcifications within the uterus likely secondary to calcified fibroids Skeletal structures: No destructive osseous lesions are seen. IMPRESSION: 1. No evidence of bowel obstruction. No evidence of free air 2. No evidence of acute diverticulitis. No evidence of acute appendicitis. 3. Gastric antral and duodenal wall thickening, suspicious for a gastritis/duodenitis. 4. Complex cystic 25 mm left renal lesion with surrounding hypoechoic parenchyma. There is mild enhancement of the renal pelvis and proximal ureter. The findings are suspicious for a renal abscess with a pyelitis. Urological consultation recommended in follow-up.. 5. Additional indeterminate 11 mm left renal lesion. 6. 2 mm nonobstructing left renal calculus. No ureteral calculi identified. 6. 44 mm cystic right adnexal lesion statistically ovarian ACT 112: Positive. There are findings on this exam that require communication between the performing entity and the patient following Patient Test Result Information Act ([place] Act 112) guidelines. Electronically signed by: Reza Knox M.D. 02/22/2021 12:54 PM Diagnostic Findings EKG as per my interpretation rate 80, NSR, normal axis, no ischemia, T wave abnormality septal leads
[2021-02-23] MEDS ORDERED: PROMETHAZINE HCL 12.5 MG in SODIUM CHLORIDE 0.9% 50 ML IV PRN (00:46)
[2021-02-23] MEDS ORDERED: POLYETHYLENE (MIRALAX) 17 GM PACK PO PRN (00:46)
[2021-02-23] MEDS ORDERED: POLYETHYLENE (MIRALAX) 17 GM PACK PO STA (00:46)
[2021-02-23] MEDS ORDERED: MoRPHine SULFATE 2 MG/ML CARP IV PRN (00:46)
[2021-02-23] MEDS ORDERED: traMADol HCL 50 MG TABLET PO PRN (00:46)
[2021-02-23] MEDS ORDERED: LORazepam 0.25 MG/0.5 ML VIAL IV PRN (00:46)
[2021-02-23] MEDS ORDERED: MELATONIN 3 MG TAB PO PRN (00:46)
[2021-02-23] MEDS ORDERED: NON-FORMULARY MEDICATION PO PRN (00:46)
[2021-02-23] MEDS ORDERED: LACTATED RINGER'S 1,000 ML IV ONE (01:30)
[2021-02-23] MEDS: DOCUSATE SODIUM/SENNA 50/8.6MG TAB PO SCH ×2 (01:38→07:55)
[2021-02-23] MEDS: PIPERACILLIN/TAZOBACTAM 3.375 GM in DEXTROSE 5% 100 ML IV SCH ×3 (03:51→20:19)
[2021-02-23] MEDS: LEVOTHYROXINE SODIUM 88 MCG TABLET PO SCH (06:11)
[2021-02-23 06:40] LABS: Basophils # (auto) 0.06 K/uL (0-0.2); Basophils % (auto) 0.6 %; Eosinophils # (auto) 0.16 K/uL (0-0.5); Eosinophils % (auto) 1.5 %; Hematocrit (blood only) 33.6 % (37-47); Hemoglobin 11.2 g/dL (12.0-16.0); Immature Granulocytes # (auto) 0.07 K/uL (0.00-0.02); Immature Granulocytes % (auto) 0.7 %; Lymphocytes # (auto) 1.78 K/uL (1.2-3.4); Lymphocytes % (auto) 17.1 %; Mean Corpuscular Hemoglobin 30.1 pg (25-34); Mean Corpuscular Hgb Conc 33.3 g/dL (32-36); Mean Corpuscular Volume 90.3 fL (80-100); Monocytes % (auto) 16.4 %; Neutrophils # (auto) 6.61 K/uL (1.4-6.5); Neutrophils % (auto) 63.7 %; Platelet Count 359 K/uL (130-400); RDW Standard Deviation 46.8 fL (36.4-46.3); Red Blood Count 3.72 M/uL (4.2-5.4); White Blood Count 10.38 K/uL (4.8-10.8)
[2021-02-23 07:14] LABS: BUN Creatinine Ratio 24.1 (10-20); Calcium 8.6 mg/dl (8.5-10.1); Creatinine Clr Calc Pharmacy 68.2 ml/min; Est GFR (African American) 111.5; Est GFR (Non-African American) 96.2; Potassium 3.6 mmol/L (3.5-5.1)
[2021-02-23] MEDS: PANTOprazole 40 MG TAB PO SCH (07:55)
--- NOTE | 2021-02-23 08:34 | Urology Consultation ---
Date of Consultation February 23, 2021 Assessment & Plan (1) Abscess of left kidney: Patient with acute illness. Presented with abdominal discomfort found to have gastritis/duodenitis. Patient also found to have likely UTI with possible pyelonephritis leading to development of renal abscess versus infected cyst versus complex renal lesion. Discussed at length different options for management. Discussed concerns and issues related to kidney abscess. Discussed possible other issues. Discussed r enal cysts and concerns related to renal lesions. Discussed complex cyst. Discussed infections. Discussed different options including drainage versus observation versus IV antibiotics. Discussed possible outpatient therapy with Cipro if found to be susceptible. Discussed likely prolonged course of antibiotics with a lesion under 3 cm. There was some discussion of transfer to a facility with interventional radiology as this was a somewhat larger lesion. Bed availability made this impossible and patient instead elected to be observed and monitored and managed with acute illness here. Discussed possible need for transfer if patient does develop worsening fevers. Discussed awaiting cultures and sensitivities in order to determine neck step in clinical plan. Assuming patient improves with time hydration and supportive care will likely plan for home IV antibiotics versus fluoroquinolone orally if susceptible. Will need repeat imaging after course of 2 to 4 weeks of antibiotic therapy. Patient's complicated medical and surgical history is reviewed and summarized above. Specifically patient's previous history of other medical issues. Please see history and HPI section. Imaging was reviewed interpreted by myself. Lesion of the left kidney with subcentimeter lesion. Both indeterminate with possibility of abscess first complex cyst versus solid lesion. We will continue with management of acute illness dealing with both the gastritis and pyelonephritis. At this point will treat with concern for renal abscess with IV therapy. This was discussed at length with patient. Also lengthy conversations with the hospitalist and emergency department and coordinating care for this patient. (2) Acute pyelitis: History of Present Illness Attending Physician: Milka Giraldo, History of Present Illness New urgent consultation for patient with severe UTI/Pyelo, discomfort, and ill feelings. Initial concern for sepsis. Imaging showing likely left <3cm Renal Abscess with additional smaller 1 cm indeterminant lesions. Patient developed sudden onset of pain into flank going down and radiating into groin and back in waves comes and goes. Can be severe at times. Discussed and reviewed patient's family history for any history of issues, infections, and disease. Also, discussed patient's medical/surgery history especially related to any history of urinary issues or stone disease. Family history of breast cancer. No history of major malignancy. Patient was admitted and is undergoing observation with broad spectrum IV antibiotics. Patient had minor UTIs in the past. With hydration time and antibiotics has not had severe flare exacerbation of issues Allergies Allergy/AdvReac Type Severity Reaction Status Date / Time ceftriaxone Allergy Mild Hives Verified 02/22/21 23:56 aspirin AdvReac Intermediate Severe GI Unverified 02/22/21 13:18 upset Home Medications Medication Instructions Recorded Confirmed Type ibuprofen-acetaminophen [Advil 1 tab PO Q8H PRN 02/22/21 02/22/21 History Dual Action] levothyroxine 88 mcg PO QAM 02/22/21 02/22/21 History ondansetron HCl 4 mg PO TID PRN 02/22/21 02/22/21 History sumatriptan succinate 100 mg PO UD 02/22/21 02/22/21 History Patient History Medical History Environmental and seasonal allergies Hx of migraines Hypothyroidism Surgical History No history of previous surgery Social History Smoking Status: Former smoker Hx Alcohol Use: Yes Alcohol type: wine Hx Substance Use: No Preferred Language: [place] Administrator Required: No Beliefs That Will Affect Care: None marital status: Single Current Living Situation: Alone current occupational status: employed Other Information That Helps Us Care for You: No Feels Safe at Home: Yes Assistive Devices: Glasses Review of Systems Review of Systems: All systems reviewed & are unremarkable except as noted in HPI & below Physical Exam Physical Exam: General: Alert and oriented x 3 in no acute distress. Patient is well nourished and well kept. HEENT: Normocephalic Atraumatic. Inspection normal. Cranial Nerves 2-12 Grossly intact. Nares are clear. Neck is supple. Normal inspection of face. Normal inspection of neck. Neurologic: No deficits on inspection. Baseline for motor function and sensory. Psychologic: Normal affect. Respiratory: Nonlabored. No use of accessory muscles. No tachypnea or dyspnea. Cardiovascular: No tachycardia Skin: [place] and Dry. No rashes or visible lesions. Extremities: Moving without issues. No motor deficits on inspection Lymphatics: No edema Abdomen: Soft Non-distended. No acites. No rebound or guarding. Results & Data ([facility]) Vital Signs (Past 12 Hours) Vital Signs Temp Pulse Resp BP Pulse Ox 02/23/21 07:20 37.2 C 78 16 128/81 97 02/23/21 00:30 37.0 C 91 H 18 138/87 98 02/23/21 00:17 73 17 128/78 99 02/22/21 21:42 88 17 134/88 99 02/22/21 20:47 78 18 130/86 98 PG Care Time/CCT Total # of Minutes Spent Total Time Spent with Patient: Total time spent is greater than 50% in coordination of care (as documented) at patient's floor/unit and/or counseling patient: Coding Level of Care Code 85653 Inpt Consult Level 5 Diagnoses Abscess of left kidney N15.1 Acute pyelitis N10
--- NOTE | 2021-02-23 18:11 | Hospitalist Progress Note ---
Date of Service February 23, 2021 Assessment & Plan (1) Abscess of left kidney: She denies any UTI symptoms. There is no evidence of sepsis at this time. Continue with Zosyn per urology recommendations with repeat imaging in next couple of days. She appears to be looking good cannot clinically and has no CVA tenderness or other fever or signs of uncontrolled infection. (2) Gastritis and duodenitis: CT imaging reveals bowel wall thickening involving the gastric antrum and duodenum suspicious for a gastritis/duodenitis. Patient has a history of heavy NSAID use. She currently has no epigastric pain however she is now taking PPI therapy. Consult GI for recommendations on endoscopy. (3) Hypothyroidism: Continue home levothyroxine. (4) Hx of migraines: As needed Imitrex as needed (5) DVT prophylaxis: Lovenox Full code Dispo-to home when medically stable [facility]iral[facility] and Anticipated Discharge Date Admission Date: February 22, 2021 Subjective 61-year-old female with left renal abscess. She is feeling well today reporting no abdominal pain or CVA tenderness. She is afebrile and has no evidence of sepsis. She is doing well on the antibiotics. She is tolerating p.o. She is ambulating at baseline. Per urology continuing with Zosyn is reasonable with eventual repeating imaging and monitoring of clinical progress. Review of Systems Review of Systems: All systems reviewed & are unremarkable except as noted in Subjective Physical Exam Physical Exam: CONSTITUTIONAL: WNWD, vitals as above, generally well- appearing EYES: normal conjunctivae, no scleral icterus ENT: external ear and nose normal, MMM RESPIRATORY: clear to auscultation bilaterally, no crackles, rales or wheezes, normal respiratory effort CARDIOVASCULAR: regular rate and rhythm, S1 and 2 heard without murmurs, ga llops or rubs, no JVD, no peripheral edema GASTROINTESTINAL: soft, nontender, nondistended MUSCULOSKELETAL: strength 5/5 throughout, head is normocephalic and atraumatic, ambulatory SKIN: warm and dry NEUROLOGIC: CN 2-12 grossly intact, no sensory deficit, normal cognition, normal speech, no tremor PSYCHIATRIC: alert cooperative and oriented to person, place and time. Euthymic mood, makes good eye contact, language grossly intact, recent and remote memory grossly intact. Results & Data Results & Data ([facility]) Vital Signs (Past 12 Hours) Vital Signs Temp Pulse Resp BP Pulse Ox 02/23/21 15:04 37.5 C 86 19 132/81 97 02/23/21 07:20 37.2 C 78 16 128/81 97 Laboratory Results Short CBC 02/23/21 Range/Units 06:28 WBC 10.38 (4.8-10.8) K/uL Hgb 11.2 L (12.0-16.0) g/dL Hct 33.6 L (37-47) % Plt Count 359 (130-400) K/uL BMP 02/23/21 06:28 Sodium 139 Potassium 3.6 Chloride 108 H Carbon Dioxide 26 BUN 16 Creatinine 0.67 Glucose 100 H Calcium 8.6 D Medications Administered Current Inpatient Medications Promethazine HCl 12.5 mg/ (Sodium Chloride) 50.5 mls @ 202 mls/hr IV Q6H PRN PRN Reason: Nausea And Vomiting Stop: 03/25/21 00:45 Lorazepam (Ativan) 0.25 mg in 0.5 mls @ 0.5 mls/min IV Q4H PRN PRN Reason: Anxiety Stop: 03/25/21 00:45 Piperacillin Sod/Tazobactam (Sod 3.375 gm/ Dextrose) 115 mls @ 28.75 mls/hr IV Q8H [facility]; Protocol Stop: 03/05/21 03:59 Last Infusion: 02/23/21 16:48 Dose: Infused Documented by: Levothyroxine Sodium (Levothyroxine Sodium 88 Mcg Tablet) [facility] Stop: 03/25/21 06:29 Last Admin: 02/23/21 06:11 Dose: 88 mcg Documented by: Melatonin (Melatonin 3 Mg Tab) 3 mg PO HS PRN PRN Reason: Sleep Stop: 03/25/21 00:45 Miscellaneous Information (Piperacill/Tazobac Consult Active) 1 ea N/A UD PRN PRN Reason: Consult Stop: 03/24/21 21:21 Morphine Sulfate (Morphine Sulfate 2 Mg/Ml Carp) 2 mg IV Q3H PRN PRN Reason: Pain Stop: 03/09/21 00:45 Pantoprazole Sodium (Pantoprazole 40 Mg Tab) 40 mg PO DAILY [facility] Stop: 03/25/21 08:59 Last Admin: 02/23/21 07:55 Dose: 40 mg Documented by: Polyethylene Glycol (Polyethylene (Miralax) 17 Gm Pack) 17 gm PO DAILY PRN PRN Reason: Constipation Stop: 03/25/21 00:45 Senna/Docusate Sodium (Docusate Sodium/Senna 50/8.6mg Tab) 1 tab PO QAM [facility] Stop: 03/25/21 01:59 Last Admin: 02/23/21 07:55 Dose: 1 tab Documented by: Sumatriptan Succinate (Sumatriptan Succinate 50 Mg Tab) 50 mg PO DAILY PRN PRN Reason: Migraine Headache Stop: 03/25/21 11:44 Tramadol HCl (Tramadol Hcl 50 Mg Tablet) 25 - 50 mg PO Q4H PRN PRN Reason: Pain Stop: 03/25/21 00:45 Last Admin: 02/23/21 06:15 Dose: 50 mg Documented by:
[2021-02-23] MEDS: ENOXAPARIN INJ 40 MG/0.4 ML SYR SQ SCH (20:20)
[2021-02-23] MEDS: SUMAtriptan succinate 50 MG TAB PO PRN (20:24)
[2021-02-24] MEDS: PIPERACILLIN/TAZOBACTAM 3.375 GM in DEXTROSE 5% 100 ML IV SCH ×3 (05:09→20:41)
[2021-02-24] MEDS: LEVOTHYROXINE SODIUM 88 MCG TABLET PO SCH (05:09)
[2021-02-24] MEDS: SUMAtriptan succinate 50 MG TAB PO PRN ×2 (05:28→19:27)
[2021-02-24 05:57] LABS: Hematocrit (blood only) 32.8 % (37-47); Hemoglobin 11.2 g/dL (12.0-16.0); Mean Corpuscular Hemoglobin 29.9 pg (25-34); Mean Corpuscular Hgb Conc 34.1 g/dL (32-36); Mean Corpuscular Volume 87.7 fL (80-100); Mean Platelet Volume 10.9 fL (7.4-10.4); Platelet Count 420 K/uL (130-400); RDW Coefficient of Variation 13.8 % (11.5-14.5); RDW Standard Deviation 44.7 fL (36.4-46.3); Red Blood Count 3.74 M/uL (4.2-5.4)
[2021-02-24 06:25] LABS: BUN Creatinine Ratio 21.8 (10-20); Calcium 8.4 mg/dl (8.5-10.1); Creatinine Clr Calc Pharmacy 77.5 ml/min; Est GFR (African American) 116.3; Est GFR (Non-African American) 100.3; Potassium 3.7 mmol/L (3.5-5.1)
[2021-02-24] MEDS: DOCUSATE SODIUM/SENNA 50/8.6MG TAB PO SCH (09:30)
[2021-02-24] MEDS: PANTOprazole 40 MG TAB PO SCH (10:14)
--- NOTE | 2021-02-24 11:39 | Gastrointestinal Consultation ---
Date of Consultation February 24, 2021 Assessment & Plan (1) Abnormal CT scan: Likely has NSAIDs related PUD. Will treat with PO PPI BID for 2 months. Plan for EGD electively as OP once her Kidney infection resolve. Avoid NSAIDs. I recommend colonoscopy but she refused and does not want to discuss alternatives. Recall GI if needed. (2) Gastritis and duodenitis: (3) Epigastric pain: (4) Anemia: History of Present Illness Attending Physician: Milka Giraldo DO 61 years old female patient admitted for a kidney abscess, GI consulted for abnormal CT scan done for epigastric discomfort which showed gastritis/duod enitis, patient reported senior living heavy NSAIDs use for isaac musculoskeletal pain. Denies any nausea or vomiting, no hematemesis or melena. No prior EGD/colonoscopy. Allergies Allergy/AdvReac Type Severity Reaction Status Date / Time ceftriaxone Allergy Mild Hives Verified 02/22/21 23:56 aspirin AdvReac Intermediate Severe GI Unverified 02/22/21 13:18 upset Home Medications Medication Instructions Recorded Confirmed Type ibuprofen-acetaminophen [Advil 1 tab PO Q8H PRN 02/22/21 02/22/21 History Dual Action] levothyroxine 88 mcg PO QAM 02/22/21 02/22/21 History ondansetron HCl 4 mg PO TID PRN 02/22/21 02/22/21 History sumatriptan succinate 100 mg PO UD 02/22/21 02/22/21 History Patient History Medical History Environmental and seasonal allergies Hx of migraines Hypothyroidism Surgical History No history of previous surgery Social History Smoking Status: Former smoker Hx Alcohol Use: Yes Alcohol type: wine Hx Substance Use: No Preferred Language: [place]er Cat Swamper Required: No Beliefs That Will Affect Care: None marital status: Single Current Living Situation: Alone current occupational status: employed Other Information That Helps Us Care for You: No Feels Safe at Home: Yes Assistive Devices: None Review of Systems Constitutional: no fever, no chills, no fatigue and no weight loss Eyes: no eye pain and no worsening vision Ear, Nose, Mouth, Throat: no tinnitus, no dizziness, no nasal discharge and no epistaxis Respiratory: no cough, no dyspnea, no dyspnea on exertion and no wheezing Cardiovascular: no chest pain, no orthopnea, no palpitations and no edema Gastrointestinal: as per Subjective / HPI Musculoskeletal: no stiffness and no myalgia Neurologic: no localized weakness, no paralysis, no tremor(s) and no headache(s) Endocrine: no polydipsia and no polyuria Hematologic / Lymphatic: no easy bleeding and no night sweats Physical Exam Constitutional: + well hydrated, cooperative and comfortable Eyes: PERRL, conjunctivae normal, anicteric sclerae ENMT: external ear and nose normal, oropharynx normal Neck: normal visual inspection and trachea midline Respiratory: normal respiratory effort, lungs clear to auscultation Auscultation: no wheezes Cardiovascular: RRR, no murmur, no edema Gastrointestinal (Abdomen): normal bowel sounds, soft, nontender, no hepatosplenomegaly Musculoskeletal: no cyanosis or clubbing, extremities motor strength 5/5 Skin: no rashes, warm and dry Neurologic: awake; no focal motor deficits Motor/Sensory: no tremor Results & Data ([facility]) Vital Signs (Past 12 Hours) Vital Signs Temp Pulse Resp BP Pulse Ox 02/24/21 07:30 37.2 C 83 16 130/84 96 Laboratory Results Laboratory Results - last 24 hr 02/23/21 02/24/21 02/24/21 06:28 05:40 05:40 WBC 12.60 H RBC 3.74 L Hgb 11.2 L Hct 32.8 L MCV 87.7 MCH 29.9 MCHC 34.1 RDW Std Deviation 44.7 RDW Coeff of Lilliam 13.8 Plt Count 420 H MPV 10.9 H Sodium 138 Potassium 3.7 Chloride 108 H Carbon Dioxide 25 Anion Gap 5.0 BUN 13 Creatinine 0.59 L Est Cr Clr Drug Dosing 77.5 Est GFR ( Amer) 116.3 Est GFR (Non-Af Amer) 100.3 BUN/Creatinine Ratio 21.8 H Glucose 104 H Estimat Average Glucose Pending Hemoglobin A1c Pending Calcium 8.4 L
--- NOTE | 2021-02-24 14:34 | Hospitalist Progress Note ---
Date of Service February 24, 2021 Assessment & Plan (1) Abscess of left kidney: She denies any UTI symptoms. There is no evidence of sepsis at this time. Continue with Zosyn per urology recommendations with repeat imaging in next couple of days. She appears to be looking good clinically and has no CVA tenderness or other fever or signs of uncontrolled infection. (2) Gastritis and duodenitis: CT imaging reveals bowel wall thickening involving the gastric antrum and duodenum suspicious for a gastritis/duodenitis likely related to ulcer disease. Patient has a history of heavy NSAID use. Improved on twice daily PPI therapy and will continue this. Per GI recommendations she should undergo an outpatient endoscopy after resolution of her kidney infection. NSAID therapy cessation is advised. (3) Hypothyroidism: Continue home levothyroxine. (4) Hx of migraines: As needed Imitrex as needed (5) DVT prophylaxis: Lovenox Full code Dispo-to home when medically stable Milka Giraldo DO [facility] Hospitalist Admission and Anticipated Discharge Date Admission Date: February 22, 2021 Subjective 61-year-old female with left renal abscess. She is feeling well today reporting no abdominal pain or CVA tenderness. She is afebrile and has no evidence of sepsis. She is doing well on the antibiotics. She is tolerating p.o. She is ambulating at baseline. Per urology continuing with Zosyn is reasonable with eventual repeating imaging and monitoring of clinical progress. GI saw her with plans for outpatient EGD and treatment for suspected duodenal ulcer disease. Cessation of NSAIDs recommended, therefore, we went through various alternative pain regimens to deal with her chronic pain issues. Review of Systems Review of Systems: All systems reviewed & are unremarkable except as noted in Subjective Physical Exam Physical Exam: CONSTITUTIONAL: WNWD, vitals as above, generally well- appearing EYES: normal conjunctivae, no scleral icterus ENT: external ear and nose normal, MMM RESPIRATORY: clear to auscultation bilaterally, no crackles, rales or wheezes, normal respiratory effort CARDIOVASCULAR: regular rate and rhythm, S1 and 2 heard without murmurs, gallops or rubs, no JVD, no peripheral edema GASTROINTESTINAL: soft, nontender, nondistended MUSCULOSKELETAL: strength 5/5 throughout, head is normocephalic and atraumatic, ambulatory SKIN: warm and dry NEUROLOGIC: CN 2-12 grossly intact, no sensory deficit, normal cognition, normal speech, no tremor PSYCHIATRIC: alert cooperative and oriented to person, place and time. Euthymic mood, makes good eye contact, language grossly intact, recent and remote memory grossly intact. Results & Data Results & Data ([facility]) Vital Signs (Past 12 Hours) Vital Signs Temp Pulse Resp BP Pulse Ox 02/24/21 07:30 37.2 C 83 16 130/84 96 Laboratory Results Short CBC 02/24/21 Range/Units 05:40 WBC 12.60 H (4.8-10.8) K/uL Hgb 11.2 L (12.0-16.0) g/dL Hct 32.8 L (37-47) % Plt Count 420 H (130-400) K/uL BMP 02/24/21 05:40 Sodium 138 Potassium 3.7 Chloride 108 H Carbon Dioxide 25 BUN 13 Creatinine 0.59 L Glucose 104 H Calcium 8.4 L Medications Administered Current Inpatient Medications Enoxaparin Sodium (Enoxaparin Inj 40 Mg/0.4 Ml Syr) 40 mg SQ HS [facility] Stop: 03/25/21 20:59 Last Admin: 02/23/21 20:20 Dose: Not Given Documented by: Promethazine HCl 12.5 mg/ (Sodium Chloride) 50.5 mls @ 202 mls/hr IV Q6H PRN PRN Reason: Nausea And Vomiting Stop: 03/25/21 00:45 Lorazepam (Ativan) 0.25 mg in 0.5 mls @ 0.5 mls/min IV Q4H PRN PRN Reason: Anxiety Stop: 03/25/21 00:45 Piperacillin Sod/Tazobactam (Sod 3.375 gm/ Dextrose) 115 mls @ 28.75 mls/hr IV Q8H [facility]; Protocol Stop: 03/05/21 03:59 Last Admin: 02/24/21 12:28 Dose: 28.8 mls/hr Documented by: Levothyroxine Sodium (Levothyroxine Sodium 88 Mcg Tablet) 88 mcg PO DAILYBB [facility] Stop: 03/25/21 06:29 Last Admin: 02/24/21 05:09 Dose: 88 mcg Documented by: Melatonin (Melatonin 3 Mg Tab) 3 mg PO HS PRN PRN Reason: Sleep Stop: 03/25/21 00:45 Miscellaneous Information (Piperacill/Tazobac Consult Active) 1 ea N/A UD PRN PRN Reason: Consult Stop: 03/24/21 21:21 Morphine Sulfate (Morphine Sulfate 2 Mg/Ml Carp) 2 mg IV Q3H PRN PRN Reason: Pain Stop: 03/09/21 00:45 Pantoprazole Sodium (Pantoprazole 40 Mg Tab) 40 mg PO DAILY [facility] Stop: 03/25/21 08:59 Last Admin: 02/24/21 10:14 Dose: 40 mg Documented by: Polyethylene Glycol (Polyethylene (Miralax) 17 Gm Pack) 17 gm PO DAILY PRN PRN Reason: Constipation Stop: 03/25/21 00:45 Senna/Docusate Sodium (Docusate Sodium/Senna 50/8.6mg Tab) 1 tab PO QAM [facility] Stop: 03/25/21 01:59 Last Admin: 02/24/21 09:30 Dose: Not Given Documented by: Sumatriptan Succinate (Sumatriptan Succinate 50 Mg Tab) 50 mg PO DAILY PRN PRN Reason: Migraine Headache Stop: 03/25/21 11:44 Last Admin: 02/24/21 05:28 Dose: 50 mg Documented by: Tramadol HCl (Tramadol Hcl 50 Mg Tablet) 25 - 50 mg PO Q4H PRN PRN Reason: Pain Stop: 03/25/21 00:45 Last Admin: 02/23/21 06:15 Dose: 50 mg Documented by:
[2021-02-24] MEDS: ENOXAPARIN INJ 40 MG/0.4 ML SYR SQ SCH (20:42)
[2021-02-25] MEDS: LEVOTHYROXINE SODIUM 88 MCG TABLET PO SCH (04:59)
[2021-02-25] MEDS: PIPERACILLIN/TAZOBACTAM 3.375 GM in DEXTROSE 5% 100 ML IV SCH ×3 (04:59→21:22)
[2021-02-25 06:40] LABS: Hematocrit (blood only) 37.2 % (37-47); Hemoglobin 12.3 g/dL (12.0-16.0); Mean Corpuscular Hgb Conc 33.1 g/dL (32-36); Mean Corpuscular Volume 90.7 fL (80-100); Mean Platelet Volume 10.8 fL (7.4-10.4); Platelet Count 549 K/uL (130-400); RDW Coefficient of Variation 13.9 % (11.5-14.5); RDW Standard Deviation 46.2 fL (36.4-46.3); White Blood Count 14.17 K/uL (4.8-10.8)
[2021-02-25 07:10] LABS: BUN Creatinine Ratio 16.9 (10-20); Calcium 8.8 mg/dl (8.5-10.1); Creatinine Clr Calc Pharmacy 65.3 ml/min; Est GFR (African American) 109.9; Est GFR (Non-African American) 94.8; Potassium 4.1 mmol/L (3.5-5.1)
[2021-02-25 07:46] LABS: Estimated Average Glucose 111 mg/dl; Hemoglobin A1C 5.5 % (4.5-5.6)
[2021-02-25] MEDS: DOCUSATE SODIUM/SENNA 50/8.6MG TAB PO SCH (09:00)
[2021-02-25] MEDS: PANTOprazole 40 MG TAB PO SCH (09:00)
[2021-02-25] MEDS ORDERED: ZOLPIDEM TARTRATE 5 MG TAB PO PRN (10:44)
--- NOTE | 2021-02-25 13:39 | Hospitalist Progress Note ---
Date of Service February 25, 2021 Assessment & Plan (1) Abscess of left kidney: She denies any UTI symptoms. There is no evidence of sepsis at this time. Continue with Zosyn per urology recommendations with repeat imaging in next couple of days. Appreciate urology input and recommendation She appears to be looking good clinically and denies any signs and/or symptoms of ongoing infection White count is minimally elevated at 14,000 No CVA tenderness We will continue current antibiotic and await further urology recommendation Generalized anxiety disorder We will try small dose of Ativan while in the hospital We will need to have follow-up with PCP for further recommendation (2) Gastritis and duodenitis: CT imaging reveals bowel wall thickening involving the gastric antrum and duodenum suspicious for a gastritis/duodenitis likely related to ulcer disease. Patient has a history of heavy NSAID use. Improved on twice daily PPI therapy and will continue this. Per GI recommendations she should undergo an outpatient endoscopy after re solution of her kidney infection. No more NSAID's Pain control with Tylenol (3) Hypothyroidism: Continue home levothyroxine. (4) Hx of migraines: As needed Imitrex as needed (5) DVT prophylaxis: Lovenox Full code Dispo-to home when medically stable Discussed with significant other in detail Admission and Anticipated Discharge Date Admission Date: February 22, 2021 Subjective 02/25/2021 The patient was seen and examined in medical floor Conversation with her significant other over phone at the same time She has been feeling a lot better but has not been sleeping well and very anxious She denies any abdominal pain, any back pain, any nausea and or vomiting Review of Systems Review of Systems: All systems reviewed and are unremarkable except as noted below Psychiatric: + anxiety Physical Exam Physical Exam: Walking around in the room without any acute distress Constitutional: + thin; not ill appearing Eyes: PERRL, conjunctivae normal, anicteric sclerae ENMT: external ear and nose normal, oropharynx normal Neck: trachea midline, no thyromegaly Respiratory: no respiratory distress Auscultation: lungs clear to auscultation bilaterally Cardiovascular: Rate/Rhythm: regular rate and regular rhythm Heart Sounds: no murmur Extremities: no edema Gastrointestinal (Abdomen): Inspection/Auscultation: normal bowel sounds; abdomen not distended Percussion/Palpation: abdomen soft; abdomen nontender Musculoskeletal: No acute arthritis involving any joint Neurologic: Alert, awake and oriented x3. No focal sensory and/or motor deficit appreciated Psychiatric: Mood: + anxious mood; no irritable mood Lymphatic: no cervical or axillary lymphadenopathy Results & Data Results & Data ([facility]) Vital Signs (Past 12 Hours) Vital Signs Temp Pulse Resp BP Pulse Ox 02/25/21 07:36 37.5 C 84 14 123/82 99 Laboratory Results Short CBC 02/25/21 Range/Units 05:59 WBC 14.17 H (4.8-10.8) K/uL Hgb 12.3 (12.0-16.0) g/dL Hct 37.2 (37-47) % Plt Count 549 H (130-400) K/uL BMP 02/25/21 05:59 Sodium 140 Potassium 4.1 Chloride 108 H Carbon Dioxide 28 BUN 12 Creatinine 0.70 Glucose 103 H Calcium 8.8 Medications Administered Current Inpatient Medications Enoxaparin Sodium (Enoxaparin Inj 40 Mg/0.4 Ml Syr) 40 mg SQ HS [facility] Stop: 03/25/21 20:59 Last Admin: 02/24/21 20:42 Dose: Not Given Documented by: Promethazine HCl 12.5 mg/ (Sodium Chloride) 50.5 mls @ 202 mls/hr IV Q6H PRN PRN Reason: Nausea And Vomiting Stop: 03/25/21 00:45 Lorazepam (Ativan) 0.25 mg in 0.5 mls @ 0.5 mls/min IV Q4H PRN PRN Reason: Anxiety Stop: 03/25/21 00:45 Piperacillin Sod/Tazobactam (Sod 3.375 gm/ Dextrose) 115 mls @ 28.75 mls/hr IV Q8H [facility]; Protocol Stop: 03/05/21 03:59 Last Admin: 02/25/21 12:33 Dose: 28.8 mls/hr Documented by: Levothyroxine Sodium (Levothyroxine Sodium 88 Mcg Tablet) 88 mcg PO DAILYBB [facility] Stop: 03/25/21 06:29 Last Admin: 02/25/21 04:59 Dose: 88 mcg Documented by: Miscellaneous Information (Piperacill/Tazobac Consult Active) 1 ea N/A UD PRN PRN Reason: Consult Stop: 03/24/21 21:21 Morphine Sulfate (Morphine Sulfate 2 Mg/Ml Carp) 2 mg IV Q3H PRN PRN Reason: Pain Stop: 03/09/21 00:45 Pantoprazole Sodium (Pantoprazole 40 Mg Tab) 40 mg PO DAILY [facility] Stop: 03/25/21 08:59 Last Admin: 02/25/21 09:00 Dose: 40 mg Documented by: Polyethylene Glycol (Polyethylene (Miralax) 17 Gm Pack) 17 gm PO DAILY PRN PRN Reason: Constipation Stop: 03/25/21 00:45 Senna/Docusate Sodium (Docusate Sodium/Senna 50/8.6mg Tab) 1 tab PO QAM [facility] Stop: 03/25/21 01:59 Last Admin: 02/25/21 09:00 Dose: Not Given Documented by: Sumatriptan Succinate (Sumatriptan Succinate 50 Mg Tab) 50 - 100 mg PO DAILY PRN PRN Reason: Migraine Headache Stop: 03/26/21 19:11 Last Admin: 02/24/21 19:27 Dose: 50 mg Documented by: Tramadol HCl (Tramadol Hcl 50 Mg Tablet) 25 - 50 mg PO Q4H PRN PRN Reason: Pain Stop: 03/25/21 00:45 Last Admin: 02/23/21 06:15 Dose: 50 mg Documented by: Zolpidem Tartrate (Zolpidem Tartrate 5 Mg Tab) 5 mg PO HS PRN PRN Reason: Sleep Stop: 03/27/21 10:43
[2021-02-25] MEDS: SUMAtriptan succinate 50 MG TAB PO PRN (20:20)
[2021-02-25] MEDS: ENOXAPARIN INJ 40 MG/0.4 ML SYR SQ SCH (21:22)
[2021-02-26] MEDS: PIPERACILLIN/TAZOBACTAM 3.375 GM in DEXTROSE 5% 100 ML IV SCH ×2 (05:31→11:20)
[2021-02-26] MEDS: LEVOTHYROXINE SODIUM 88 MCG TABLET PO SCH (05:32)
[2021-02-26 06:12] LABS: Hemoglobin 12.6 g/dL (12.0-16.0); Mean Corpuscular Hemoglobin 30.1 pg (25-34); Mean Corpuscular Hgb Conc 34.1 g/dL (32-36); Mean Corpuscular Volume 88.3 fL (80-100); Mean Platelet Volume 10.5 fL (7.4-10.4); Platelet Count 613 K/uL (130-400); RDW Coefficient of Variation 13.7 % (11.5-14.5); RDW Standard Deviation 44.6 fL (36.4-46.3); Red Blood Count 4.19 M/uL (4.2-5.4); White Blood Count 14.14 K/uL (4.8-10.8)
[2021-02-26 06:34] LABS: Basophils # (auto) 0.07 K/uL (0-0.2); Basophils % (auto) 0.5 %; Eosinophils # (auto) 0.43 K/uL (0-0.5); Immature Granulocytes # (auto) 0.93 K/uL (0.00-0.02); Immature Granulocytes % (auto) 6.6 %; Lymphocytes # (auto) 2.83 K/uL (1.2-3.4); Monocytes # (auto) 1.49 K/uL (0.11-0.59); Monocytes % (auto) 10.5 %; Neutrophils # (auto) 8.39 K/uL (1.4-6.5); Neutrophils % (auto) 59.4 %
[2021-02-26 06:41] LABS: BUN Creatinine Ratio 26.5 (10-20); Creatinine Clr Calc Pharmacy 63.5 ml/min; Est GFR (African American) 106.2; Est GFR (Non-African American) 91.7; Potassium 4.1 mmol/L (3.5-5.1)
[2021-02-26] MEDS: PANTOprazole 40 MG TAB PO SCH (08:23)
[2021-02-26] MEDS: DOCUSATE SODIUM/SENNA 50/8.6MG TAB PO SCH (08:23)
--- NOTE | 2021-02-26 12:17 | Hospitalist Progress Note ---
Date of Service February 26, 2021 Assessment & Plan (1) Abscess of left kidney: She denies any UTI symptoms. There is no evidence of sepsis at this time. Continue with Zosyn per urology recommendations with repeat imaging in next couple of days. Appreciate urology input and recommendation She appears to be looking good clinically and denies any signs and/or symptoms of ongoing infection White count is minimally elevated at 14,000 No CVA tenderness We will continue current antibiotic and await further urology recommendation Discussed with urologist-she can be discharged on home Cipro for about 4 to 6 weeks in total She remains totally asymptomatic and without any signs and or symptoms of fever or infection She will be discharged home this afternoon Generalized anxiety disorder We will try small dose of Ativan while in the hospital We will need to have follow-up with PCP for further recommendation (2) Gastritis and duodenitis: CT imaging reveals bowel wall thickening involving the gastric antrum and duodenum suspicious for a gastritis/duodenitis likely related to ulcer disease. Patient has a history of heavy NSAID use. Improved on twice daily PPI therapy and will continue this. Per GI recommendations she should undergo an outpatient endoscopy after resolution of her kidney infection. No more NSAID's Pain control with Tylenol (3) Hypothyroidism: Continue home levothyroxine. (4) Hx of migraines: As needed Imitrex as needed (5) DVT prophylaxis: Lovenox Full code Dispo-to home when medically stable Discussed with significant other in detail Will be discharged home this afternoon Admission and Anticipated Discharge Date Admission Date: February 22, 2021 Subjective 02/25/2021 The patient was seen and examined in medical floor Conversation with her significant other over phone at the same time She has been feeling a lot better but has not been sleeping well and very anxious She denies any abdominal pain, any back pain, any nausea and or vomiting 02/26/2021 The patient was seen and examined in medical floor She remains totally free of symptoms She is very anxious but has had a good sleep last night with 1 dose of Ambien Denies any abdominal pain, fever or chills, nausea no vomiting, any problem with urine and bowel habit Review of Systems Review of Systems: All systems reviewed and are unremarkable except as noted below Psychiatric: + anxiety Physical Exam Physical Exam: Walking around in the room without any acute distress Constitutional: + thin; not ill appearing Eyes: PERRL, conjunctivae normal, anicteric sclerae ENMT: external ear and nose normal, oropharynx normal Neck: trachea midline, no thyromegaly Respiratory: no respiratory distress Auscultation: lungs clear to auscultation bilaterally Cardiovascular: Rate/Rhythm: regular rate and regular rhythm Heart Sounds: no murmur Extremities: no edema Gastrointestinal (Abdomen): Inspection/Auscultation: normal bowel sounds; abdomen not distended Percussion/Palpation: abdomen soft; abdomen nontender Musculoskeletal: No acute arthritis in any joint Neurologic: Alert, awake and oriented x3. No focal sensory and motor deficit appreciated Psychiatric: Mood: + anxious mood; no irritable mood Lymphatic: no cervical or axillary lymphadenopathy Results & Data Results & Data ([facility]) Vital Signs (Past 12 Hours) Vital Signs Temp Pulse Pulse Resp BP BP Pulse Ox 02/26/21 11:23 37.1 C 84 89 16 112/74 118/79 97 02/26/21 07:40 37.1 C 89 16 118/79 97 Laboratory Results Short CBC 02/26/21 Range/Units 05:44 WBC 14.14 H (4.8-10.8) K/uL Hgb 12.6 (12.0-16.0) g/dL Hct 37.0 (37-47) % Plt Count 613 H (130-400) K/uL BMP 02/26/21 05:44 Sodium 139 Potassium 4.1 Chloride 107 Carbon Dioxide 27 BUN 19 H D Creatinine 0.72 Glucose 102 H Calcium 9.0 Medications Administered Current Inpatient Medications Enoxaparin Sodium (Enoxaparin Inj 40 Mg/0.4 Ml Syr) 40 mg SQ HS NORBERT Stop: 03/25/21 20:59 Last Admin: 02/25/21 21:22 Dose: Not Given Documented by: Promethazine HCl 12.5 mg/ (Sodium Chloride) 50.5 mls @ 202 mls/hr IV Q6H PRN PRN Reason: Nausea And Vomiting Stop: 03/25/21 00:45 Lorazepam (Ativan) 0.25 mg in 0.5 mls @ 0.5 mls/min IV Q4H PRN PRN Reason: Anxiety Stop: 03/25/21 00:45 Piperacillin Sod/Tazobactam (Sod 3.375 gm/ Dextrose) 115 mls @ 28.75 mls/hr IV Q8H NORBERT; Protocol Stop: 03/05/21 03:59 Last Admin: 02/26/21 11:20 Dose: 28.8 mls/hr Documented by: Levothyroxine Sodium (Levothyroxine Sodium 88 Mcg Tablet) 88 mcg PO DAILYBB [facility] Stop: 03/25/21 06:29 Last Admin: 02/26/21 05:32 Dose: 88 mcg Documented by: Miscellaneous Information (Piperacill/Tazobac Consult Active) 1 ea N/A UD PRN PRN Reason: Consult Stop: 03/24/21 21:21 Morphine Sulfate (Morphine Sulfate 2 Mg/Ml Carp) 2 mg IV Q3H PRN PRN Reason: Pain Stop: 03/09/21 00:45 Pantoprazole Sodium (Pantoprazole 40 Mg Tab) 40 mg PO BID [facility] Stop: 03/28/21 20:59 Polyethylene Glycol (Polyethylene (Miralax) 17 Gm Pack) 17 gm PO DAILY PRN PRN Reason: Constipation Stop: 03/25/21 00:45 Senna/Docusate Sodium (Docusate Sodium/Senna 50/8.6mg Tab) 1 tab PO QAM [facility] Stop: 03/25/21 01:59 Last Admin: 02/26/21 08:23 Dose: Not Given Documented by: Sumatriptan Succinate (Sumatriptan Succinate 50 Mg Tab) 50 - 100 mg PO DAILY PRN PRN Reason: Migraine Headache Stop: 03/26/21 19:11 Last Admin: 02/25/21 20:20 Dose: 50 mg Documented by: Tramadol HCl (Tramadol Hcl 50 Mg Tablet) 25 - 50 mg PO Q4H PRN PRN Reason: Pain Stop: 03/25/21 00:45 Last Admin: 02/23/21 06:15 Dose: 50 mg Documented by: Zolpidem Tartrate (Zolpidem Tartrate 5 Mg Tab) 5 mg PO HS PRN PRN Reason: Sleep Stop: 03/27/21 10:43 Last Admin: 02/25/21 21:26 Dose: 5 mg Documented by:
[2021-02-26] MEDS ORDERED: ADVANCED PROBIOTIC 1250 MG CAPSULE PO SCH ×2 (12:30→16:00)
[2021-02-26] MEDS ORDERED: CIPROFLOXACIN 500 MG TAB PO ONE (13:15)
[2021-02-26] MEDS ORDERED: PANTOprazole 40 MG TAB PO SCH (21:00)
[2021-02-26] MEDS ORDERED: CIPROFLOXACIN 500 MG TAB PO SCH (21:00)
--- NOTE | 2021-02-27 07:38 | Discharge Summary ---
Date of Service February 27, 2021 Admission HPI Per Admitting Provider History obtained from patient and records. Medical history significant for hypothyroidism, past tobacco abuse. 5 days history of achy/burning epigastric pain with nausea, emesis symptoms. Patient constipated. Fever, chills at home. Minimal L flank pain, dysuria symptoms. OTC ibuprofen intake (as much as 8 tablets a day) for some time now due to aches from carrying heavy stuff at [employer] work as per patient. No unusual weight loss as per patient. Patient seen at PCP's office a day after onset of symptoms. Symptoms attributed to gastroenteritis. Patient consulted ER today because of worsening symptoms. Epigastric discomfort relieved by Famotidine, Protonix, and Fentanyl. Patient given IV ceftriaxone for possible renal abscess on CT. Hives noted after IV Ceftriaxone administration. Resolved after IV Benadryl administration. Urologist simulation tech later recommended [facility] transfer for IR services for renal abscess. Patient accepted for transfer by hospitalist service (Dr. Lord) as per documentation. Patient currently refusing [facility] transfer even with bed availability. She requests to stay at [facility] for antibiotic trial for now. 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 [employer] Admission Exam Per Admitting Provider Physical Exam: GENERAL: Slightly uncomfortable, pleasant, no respiratory distress SKIN: Normal color, warm HEENT: Long palpebral conjunctivae, no ptosis, dry buccal mucosa NECK : Supple, no tenderness CHEST : CTA, no tenderness HEART : RRR, no obvious murmurs ABDOMEN: Some distention, epigastric tenderness EXTREMITIES : No LE swelling/tenderness, no other conspicuous deformities noted NEUROLOGIC : Coherent, no facial asymmetry, no other gross focality Principal Diagnosis Abscess of left kidney, gastritis and duodenitis, generalized anxiety disorder, hypothyroidism Discharge Exam Constitutional + thin; not ill appearing Eyes PERRL, conjunctivae normal, anicteric sclerae ENMT external ear and nose normal, oropharynx normal Neck trachea midline, no thyromegaly Respiratory no respiratory distress Auscultation: lungs clear to auscultation bilaterally Cardiovascular Rate/Rhythm: regular rate and regular rhythm Heart Sounds: no murmur Extremities: no edema Gastrointestinal (Abdomen) Inspection/Auscultation: normal bowel sounds; abdomen not distended Percussion/Palpation: abdomen soft; abdomen nontender Psychiatric Mood: + anxious mood; no irritable mood Lymphatic no cervical or axillary lymphadenopathy Discharge Data Allergies Allergy/AdvReac Type Severity Reaction Status Date / Time ceftriaxone Allergy Mild Hives Verified 02/22/21 23:56 aspirin AdvReac Intermediate Severe GI Unverified 02/22/21 13:18 upset Consultations 02/22/21 21:21 ED Decision to Admit Stat 02/23/21 00:46 Consult Urology Routine 02/23/21 18:16 Consult Gastroenterology Routine Ordered Studies 02/22/21 10:58 US gallbladder Stat 02/22/21 12:05 CT abd pelvis IV con only Stat Hospital Course (1) Abscess of left kidney: She denies any UTI symptoms. There is no evidence of sepsis at this time. Continue with Zosyn per urology recommendations with repeat imaging in next couple of days. Appreciate urology input and recommendation She appears to be looking good clinically and denies any signs and/or symptoms of ongoing infection White count is minimally elevated at 14,000 No CVA tenderness We will continue current antibiotic and await further urology recommendation Discussed with urologist-she can be discharged on home Cipro for about 4 to 6 weeks in total She remains totally asymptomatic and without any signs and or symptoms of fever or infection She will be discharged home this afternoon Generalized anxiety disorder We will try small dose of Ativan while in the hospital We will need to have follow-up with PCP for further recommendation (2) Gastritis and duodenitis: CT imaging reveals bowel wall thickening involving the gastric antrum and duodenum suspicious for a gastritis/duodenitis likely related to ulcer disease. Patient has a history of heavy NSAID use. Improved on twice daily PPI therapy and will continue this. Per GI recommendations she should undergo an outpatient endoscopy after resolution of her kidney infection. No more NSAID's Pain control with Tylenol (3) Hypothyroidism: Continue home levothyroxine. (4) Hx of migraines: As needed Imitrex as needed (5) DVT prophylaxis: Lovenox Full code Dispo-to home when medically stable Discussed with significant other in detail Will be discharged home this afternoon Total Time Total Time Spent Total Time Spent (In Minutes): 40 minutes Total Time Includes: Examination of the Patient, Discharge Planning, Medication Reconciliation and Communication With Other Providers Discharge Plan Discharge Items Patient Disposition: Home - Self-Care Reason For Visit: RENAL ABSCESS Discharge Diagnosis: Abscess of left kidney, gastritis and duodenitis, generalized anxiety disorder, hypothyroidism Condition on Discharge: Good Activity: Resume your previous activity Non-emergency contact: Primary Care Provider Call non-emergency contact if: you have any medication questions and your symptoms worsen Follow-up/Referrals: Silviano Olmstead DO [Physician] - 03/08/21 12:30 pm Sarita Jordan DO [Primary Care Provider] - (Date & Time 03/04/2021 11:00 AM Provider Sarita Jordan DO Department [facility] ) Diet: Regular Addtl Attending Provider Instructions: Please keep your appointments with the urologist and the primary care physician Please take your antibiotics and other medications as advised Ciprofloxacin should be continued for 4 weeks from tomorrow Protonix 40 mg twice daily should be continued for 2 months as per GI Please do not take any aspirin and/or NSAIDs-ibuprofen, Motrin, Advil and similar medications. You will need to have a repeat CAT scan(in about 4 weeks) as recommended by the urologist. Your Zofran has been discontinued and Phenergan has been prescribed for nausea and or vomiting Pending Studies at Discharge: No Stand-Alone Forms: My NP [employer], Smoking Cessation Medications and DC Order Prescriptions: New ciprofloxacin HCl 500 mg Tablet 500 mg PO BID Qty: 30 RF: 0 Advanced Probiotic 625 mg (10 billion cell) Capsule 2 cap PO DAILY Qty: 60 RF: 0 pantoprazole 40 mg Tablet,Delayed Release (Dr/Ec) 40 mg PO BID Qty: 60 RF: 0 promethazine 12.5 mg tablet 12.5 mg PO Q6H PRN (Reason: allergy symptoms) Qty: 30 RF: 0 Continued sumatriptan succinate 100 mg tablet 100 mg PO UD RF: 0 levothyroxine 88 mcg tablet 88 mcg PO QAM RF: 0 Discontinued ondansetron HCl 4 mg tablet 4 mg PO TID PRN (Reason: Nausea) RF: 0 Advil Dual Action 125-250 mg Tablet 1 tab PO Q8H PRN (Reason: Pain) RF: 0 Discharge Orders: Discharge Order (Routine); Ordered 02/26/21 Ordered By: Pam Celestin/Other Patient Handouts: Duodenitis, Understanding Gastritis Admission Data Admit Date/Time: 02/22/21 23:53 Attending Provider: Pam Wong Admit Provider: Charlie Salmon Primary Care Provider: Sarita Jordan Other Providers: Silviano Olmstead ; Charlie Salmon ; Jaswant Waldron ; Milka Giraldo Other Interventions: Discharge Summary Assessment (RN) Last Done: 02/26/21 11:23
--- NOTE | 2021-02-27 22:03 | Electrocardiogram Report ---
Test Reason : Blood Pressure : / mmHG Vent. Rate : 090 BPM Atrial Rate : 090 BPM P-R Int : 134 ms QRS Dur : 076 ms QT Int : 352 ms P-R-T Axes : 057 035 025 degrees QTc Int : 430 ms Normal sinus rhythm Normal ECG When compared with ECG of 22-FEB-2021 11:20, No significant change was found Confirmed by Harley Hartman ([id number]) on 02/27/2021 10:03:32 PM Referred By: REFERRED SELF Confirmed By:Harley Hartman
== END 2021-02-26 17:35 | disposition home or self-care (01) | DRG 690 ==
LOC: ED 09:50 → 3E 23:53 → SUATTDRO 23:53 → 3E 02-23 00:24